=== PATIENT | female | born 1980 | race Caucasian/White ===

== ENCOUNTER → 2018-05-22 | Outpatient (CLI) | payer OTHER ==
--- NOTE | 2018-05-22 10:42 | Diagnostic Imaging Report ---
TECHNIQUE: Magnetic resonance imaging of the LEFT HAND was performed WITHOUT injected contrast. Motion artifact partially limits sensitivity and specificity of the exam. HISTORY: Inflammatory polyarthropathy, Dupuytren's contracture, middle finger painful COMPARISON: None. FINDINGS: BONES: No focal or infiltrative bone marrow replacing abnormalities identified. No acute fracture or osteonecrosis. JOINTS: No joint effusion or periarticular edema. SOFT TISSUES: The visualized tendons are intact. Trace fluid adjacent to the flexor tendons of the long finger at the level of the proximal aspect of the proximal phalanx. IMPRESSION: 1. Mild long finger flexor tenosynovitis. 2. Otherwise, no evidence of inflammatory arthropathy. Signed by: Dr. Soto Hilliard D.O., M.M.M. on 05/22/2018 10:38 AM
== END ==
LOC: MRI 09:08
PROVIDERS: ATTEND Internal Medicine
DX: M06.4 Inflammatory polyarthropathy (principal); Z79.899 Other long term (current) drug therapy